=== PATIENT | male | born 1955 | race Two or more races ===

== ENCOUNTER 2022-12-18 14:27 | Outpatient (REF) | payer MEDICAID, SELFPAY ==
--- NOTE | ~2022-12-18 | US_ITS ---
EXAMINATION: US RETROPERITONEAL LIMITED (RENAL ONLY) CLINICAL INFORMATION: Stage 3a chronic kidney disease. COMPARISON: None available. TECHNIQUE: Real-time imaging of the kidneys. FINDINGS: RIGHT KIDNEY: 8.8 x 5.9 x 5.9 cm (SAG x AP x TRV). The kidney is normal in size, contour, and echogenicity. Renal cortical thickness is normal. No renal calculi or hydronephrosis. Benign cysts are present, the largest measuring 1.8 cm. A smaller cyst has a punctate calcification in its wall. No solid renal masses. LEFT KIDNEY: 11.1 x 4.5 x 4.3 cm (SAG x AP x TRV). The kidney is normal in size, contour, and echogenicity. Renal cortical thickness is normal. Three renal nonobstructing calculi are seen, one in the upper pole measuring 5 mm, mid kidney measuring 2 mm and lower pole measuring 3 mm. No hydronephrosis. Benign cysts are present, the largest measuring 2.1 cm. No solid renal masses. US/US renal BI IMPRESSION: 1. Bilateral benign Bosniak class I and Bosniak class II renal cysts need no additional imaging or followup. 2. Nonobstructing left renal calculi.
== END 2022-12-18 14:28 | disposition home or self-care (01) ==
LOC: HO.US 14:27
PROVIDERS: PCP Family Medicine; Visit Provider Internal Medicine Nephrology
DX: E11.22 Type 2 diabetes mellitus with diabetic chronic kidney disease (principal); I12.9 Hypertensive chronic kidney disease with stage 1 through stage 4 chronic kidney disease, or unspecified chronic kidney disease; N18.31 Chronic kidney disease, stage 3a
CPT/HCPCS: 76775